=== PATIENT | female | born 1985 | race Caucasian/White ===

== ENCOUNTER 2020-01-27 16:00 | Emergency (ER) | payer OTHER, MEDICAID, SELFPAY ==
[2020-01-27 16:09] VITALS: BP 123/71; PULSE 104; RESP 20; TEMP 36.9; O2SAT 95
--- NOTE | 2020-01-27 16:12 | ED.NAVMDI ---
HPI - Nausea/Vomiting/Diarrhea General Chief complaint: Nausea/Vomiting/Diarrhea Stated complaint: dehydration Time Seen by Provider: 01/27/20 16:04 Source: patient Mode of arrival: Ambulatory Limitations: no limitations History of Present Illness HPI Narrative: Patient is a 34-year-old female here for evaluation of diarrhea. She also states she is having cramping abdominal pain associated with this. Did have nausea and vomiting on the 1st day of the symptoms but that has since stopped. She is still tolerating oral intake. No recent travel. No recent antibiotic use. No sick contacts. No camping. Patient went to her clinic and was told to come to the emergency department because her heart rate was elevated. No fevers. Has not tried anything to stop the diarrhea Related Data Home Medications Medication Instructions Recorded Confirmed levonorgestrel-ethinyl estrad See Rx Instructions .ROUTE .COMPLEX 01/27/20 01/27/20 topiramate [Topamax] 25 mg PO DAILY 01/27/20 01/27/20 Allergies Allergy/AdvReac Type Severity Reaction Status Date / Time amoxicillin AdvReac Intermediate Abdominal Verified 01/27/20 16:36 Pain Review of Systems Constitutional Constitutional: Denies fever(s) Cardiovascular Cardiovascular: Denies chest pain and Denies dyspnea Respiratory Respiratory: Denies dyspnea Gastrointestinal Gastrointestinal: Reports cramping, Reports diarrhea, Denies nausea and Denies vomiting Genitourinary Genitourinary: Denies dysuria Musculoskeletal Musculoskeletal: Denies myalgias and Denies arthralgias Integumentary/Breasts Skin/Breast: Denies lesions and Denies rash Hematologic/Lymphatic Hematologic/Lymphatic: Denies easy bleeding and Denies easy bruising Patient History Medical History Healthy adult (Acute) Social History Smoking Status: Never smoker Smoking Status: Never smoker Exam Initial Vital Signs Initial Vital Signs: Vital Signs Temperature 98.4 F 01/27/20 16:09 Pulse Rate 104 H 01/27/20 16:09 Respiratory Rate 20 01/27/20 16:09 Blood Pressure 123/71 01/27/20 16:09 Pulse Oximetry 95 01/27/20 16:09 Const General: cooperative, comfortable, well developed and well groomed Limitations: mental status not altered HENME Head: normal to inspection and normocephalic Resp Effort & Inspection: normal respiratory effort Auscultation: clear to auscultation bilaterally Cardio Rate: tachycardic Rhythm: regular rhythm Pulses: radial pulses present GI Inspection: non-distended Palpation: soft, No firm and No tender Skin Lesions: no lesions Rashes: no rashes Neuro General: alert and awake Cognition: normal cognition Speech: speech normal Extrem General: normal to inspection and capillary refill normal Psych Appearance: grossly normal and well kempt Course Orders Ordered: Discontinued Medications Sodium Chloride (Normal Saline 0.9%) 1,000 mls @ 1,000 mls/hr IV BOLUS ONE Stop: 01/27/20 17:10 Last Admin: 01/27/20 16:39 Dose: 1,000 mls/hr Documented by: ALEXANDER Vital Signs Vital signs: Vital Signs - 8 hr 01/27/20 16:09 Temperature 98.4 F Pulse Rate 104 H Respiratory Rate 20 Blood Pressure 123/71 Pulse Oximetry 95 MDM - Nausea/Vomiting/Diarrhea MDM Narrative Medical decision making narrative: Patient has a very benign exam. No indication for radiologic studies. No indication for antibiotics. Patient stated that she would like to have IV fluids which were administered. I feel that we could hold on further workup. We did discuss use of anti diarrheal medications. Patient was given return precautions and follow-up instructions. She expressed understanding and agreement Discharge Plan Departure Patient Disposition: Home Clinical Impression: Diarrhea Qualifiers: Diarrhea type: unspecified type Qualified Code(s): R19.7 - Diarrhea, unspecified Instructions: Diarrhea Activity Restrictions/Additional Instructions: I do recommend that you increase your fluid intake. Use the anti diarrheal medications like we discussed if you feel like you need to use them. Return to the emergency department for any new or worsening symptoms Prescriptions: No Action topiramate [Topamax] 25 mg Tablet 25 mg PO DAILY RF: 0 levonorgestrel-ethinyl estrad 0.15 mg-30 mcg (91) Tablets,Dose Pack,3 Month See Rx Instructions .ROUTE .COMPLEX RF: 0
[2020-01-27] MEDS: SODIUM CHLORIDE 0.9% 1,000 ML 1000 ML IV (16:39)
[2020-01-27 18:18] VITALS: BP 113/70; PULSE 95; RESP 17; O2SAT 99
== END 2020-01-27 18:39 | disposition home or self-care (01) ==
PROVIDERS: Emergency Provider Emergency Medicine
DX: R19.7 Diarrhea, unspecified (principal); R10.9 Unspecified abdominal pain
CPT/HCPCS: 96360; 96361; 99284

== ENCOUNTER → 2022-09-25 11:53 | Outpatient (CLI) | payer OTHER, MEDICAID, SELFPAY ==
--- NOTE | 2022-09-25 11:57 | DI.RAD.S_ITS ---
PROCEDURE: XR CHEST 2V INDICATIONS: COUGH TECHNIQUE: 2 views of the chest were acquired. COMPARISON: None. FINDINGS: Surgical changes and devices: None. Lungs and pleura: Lungs are clear. No pleural effusions or pneumothorax. Mediastinum: Mediastinal contours are normal. Heart size is normal. Bones and chest wall: No suspicious bony abnormalities. Soft tissues appear unremarkable. IMPRESSION: No acute cardiopulmonary disease process. Dictated by: Diana Lopez MD, PhD on 09/25/2022 at 14:14 Approved by: Diana Lopez MD, PhD on 09/25/2022 at 14:14
== END ==
PROVIDERS: PCP Internal Medicine; Referring Provider Registered Nurse; Visit Provider Registered Nurse
DX: R05.9 Cough, unspecified (principal)
CPT/HCPCS: 71046

== ENCOUNTER 2022-09-27 17:55 | Emergency (ER) | payer OTHER, MEDICAID, SELFPAY ==
[2022-09-27 18:00] VITALS: BP 148/108; PULSE 100; RESP 15; TEMP 36.7; O2SAT 96; BMI 49.4
--- NOTE | 2022-09-27 18:02 | ED.EAR ---
HPI - Ear Problem General Stated complaint: Ear inf Time Seen by Provider: 09/27/22 17:57 Source: patient Mode of arrival: Ambulatory Limitations: no limitations Related Data Home Medications Medication Instructions Recorded Confirmed levonorgestrel 0.15 mg-ethinyl See Rx Instructions .Route .COMPLEX 01/27/20 01/27/20 estradiol 30 mcg tablets,3 mos pack(91) topiramate 25 mg tablet (Topamax) 25 mg PO DAILY 01/27/20 01/27/20 Allergies Allergy/AdvReac Type Severity Reaction Status Date / Time amoxicillin AdvReac Intermediate Abdominal Verified 01/27/20 16:36 Pain Review of Systems Review of Systems ROS Unobtainable: All systems reviewed & are unremarkable except as noted in HPI and below Patient History Medical History Healthy adult Social History Smoking Status: Never smoker Smoking Status: Never smoker Discharge Plan Departure Prescriptions: No Action topiramate [Topamax] 25 mg Tablet 25 mg PO DAILY levonorgestrel-ethinyl estrad 0.15 mg-30 mcg (91) Tablets,Dose Pack,3 Month See Rx Instructions .ROUTE .COMPLEX Rx Instructions: daily Referrals: Светлана Byers ARNP [Primary Care Provider] -
--- NOTE | 2022-09-27 19:20 | PC.NURSE ---
Report received - assumed care of pt at this time
--- NOTE | 2022-09-27 20:05 | ED_ITS ---
HPI - URI/Sore Throat <Yann Mejia PA-C - Last Filed: 09/27/22 20:10> General Chief Complaint: Upper Respiratory Symptoms Stated Complaint: Ear inf Time Seen by Provider: 09/27/22 17:57 Source: patient Mode of arrival: Ambulatory Limitations: no limitations History of Present Illness HPI Narrative: This is a 37-year-old female presents to the emergency department due to continued cough after recent you URI. Patient states that the cough is ?distract him crazy?. Occasionally productive, reports intermittent tactile fevers. Denies any chest pain, shortness of breath, nausea, vomiting, or any other concerning signs or symptoms. Related Data Home Medications Medication Instructions Recorded Confirmed levonorgestrel 0.15 mg-ethinyl See Rx Instructions .Route .COMPLEX 01/27/20 01/27/20 estradiol 30 mcg tablets,3 mos pack(91) topiramate 25 mg tablet (Topamax) 25 mg PO DAILY 01/27/20 01/27/20 Previous Rx's Medication Instructions Recorded benzonatate 100 mg capsule 100 mg PO TID PRN cough #30 caps 09/27/22 pseudoephedrine HCl 30 mg tablet 30 mg PO Q4-6H PRN nasal 09/27/22 (Sudafed) congestion #30 tabs Allergies Allergy/AdvReac Type Severity Reaction Status Date / Time amoxicillin AdvReac Intermediate Abdominal Verified 09/27/22 18:07 Pain Review of Systems <Yann Mejia PA-C - Last Filed: 09/27/22 20:10> Review of Systems Narrative: GENERAL: Denies chills, fatigue, malaise, fever, sweats. HEENT: Denies sinus pain, ear pain, sore throat, difficulty swallowing, dizziness. RESPIRATORY: Reports cough, Denies dyspnea, , wheezing, hemoptysis, sputum. CARDIOVASCULAR: Denies chest pain, palpitations, orthopnea, edema, GASTROINTESTINAL: Denies nausea, vomiting, abdominal pain, diarrhea, constipati on, melena. : Denies dysuria, frequency, incontinence, hematuria, urinary retention. MUSCULOSKELETAL: denies weakness, joint pain, or bony pain SKIN: Denies rash, skin lesions, or other NEUROLOGIC: Denies weakness, headache, numbness, change in speech, confusion, seizures, incoordination. PSYCHIATRIC: No concerning psychosocial issues. 12 point review of systems is negative except for those stated above Patient History <Yann Mejia PA-C - Last Filed: 09/27/22 20:10> Medical History (Updated 09/27/22 @ 20:08 by Yann Mejia PA-C) Healthy adult Social History Smoking Status: Never smoker Smoking Status: Never smoker alcohol intake frequency: holidays/special occasions only Substance Use Type: does not use Exam <Yann Mejia PA-C - Last Filed: 09/27/22 20:10> Narrative Exam Narrative: GENERAL: Well-developed patient, in mild distress. HEAD: Atraumatic. Normocephalic. EYES: Pupils equal round and reactive. Extraocular motions intact. No scleral icterus. No injection or drainage. ENT: Nose without bleeding, purulent drainage. Throat without erythema, tonsillar hypertrophy or exudate. Airway patent. NECK: Trachea midline. Non tender CARDIOVASCULAR: Regular rate and rhythm without murmurs, gallops, or rubs. RESPIRATORY: Clear to auscultation. Breath sounds equal bilaterally. No wheezes, rales, or rhonchi. GASTROINTESTINAL: Abdomen soft, non-tender, nondistended. EXTREMITIES: No edema or joint tenderness. BACK: Nontender without deformity or crepitance. No flank tenderness. NEURO: AOx3. SKIN: No rash or erythema of visible areas Initial Vital Signs Initial Vital Signs: Vital Signs Temperature 98.1 F 09/27/22 18:00 Pulse Rate 100 H 09/27/22 18:00 Respiratory Rate 15 09/27/22 18:00 Blood Pressure 148/108 H 09/27/22 18:00 Pulse Oximetry 96 09/27/22 18:00 Oxygen Delivery Method 09/27/22 18:00 <Xiomara Elkins DO - Last Filed: 09/28/22 03:59> Initial Vital Signs Initial Vital Signs: Vital Signs Temperature 98.1 F 09/27/22 18:00 Pulse Rate 100 H 09/27/22 18:00 Respiratory Rate 15 09/27/22 18:00 Blood Pressure 148/108 H 09/27/22 18:00 Pulse Oximetry 96 09/27/22 18:00 Oxygen Delivery Method 09/27/22 18:00 Course <Yann Mejia PA-C - Last Filed: 09/27/22 20:10> Orders Ordered: ED Orders 09/27/22 18:08 Respiratory Panel (Film Array) Stat Vital Signs Vital signs: Vital Signs - 8 hr 09/27/22 20:21 Pulse Rate 94 H Respiratory Rate 16 Blood Pressure 135/91 H Pulse Oximetry 97 Oxygen Delivery Method Room Air <Xiomara Thomas BarakatnubiaDO - Last Filed: 09/28/22 03:59> Orders Ordered: ED Orders 09/27/22 18:08 Respiratory Panel (Film Array) Stat Vital Signs Vital signs: Vital Signs - 8 hr 09/27/22 20:21 Pulse Rate 94 H Respiratory Rate 16 Blood Pressure 135/91 H Pulse Oximetry 97 Oxygen Delivery Method Room Air MDM - URI/Sore Throat <Yann Mejia PA-C - Last Filed: 09/27/22 20:10> Lab Data Labs: Lab Results 09/27/22 Range/Units 18:08 Chlamy pneumoniae PCR Not detected (Not Detect) Adenovirus (PCR) Not detected (Not Detect) B. pertussis DNA (PCR) Not detected (Not Detecte) B.parapertussis DNA PCR Not detected (Not Detecte) Coronavirus OC43 (PCR) Not detected (Not Detect) Coronavirus HKU1 (PCR) Not detected (Not Detect) Coronavirus 229E (PCR) Not detected (Not Detect) SARS-CoV-2 (PCR) Not detected (Not Detecte) Coronavirus NL63 (PCR) Not detected (Not Detect) Human Metapneumovir PCR Not detected (Not Detect) Influenza Type A (PCR) Not detected (Not Detect) Influenza Type B (PCR) Not detected (Not Detect) M. pneumoniae (PCR) Not detected (Not Detect) Parainfluenza 1 (PCR) Not detected (Not Detect) Parainfluenza 2 (PCR) Not detected (Not Detect) Parainfluenza 3 (PCR) Not detected (Not Detect) Parainfluenza 4 (PCR) Not detected (Not Detect) RSV (PCR) Not detected (Not Detect) Entero/Rhino (PCR) Not detected (Not Detect) MDM Narrative Medical decision making narrative: This is a 37-year-old female presents to the emergency department due to suspected viral URI with continued cough. Patient is mainly concerned with the continued coughing. Patient has had a recent COVID and flu test which was negative. Also had a chest x-ray which showed no evidence of pneumonia at outs [facility]. Patient will prescribe Tessalon Perllilliana, Sudafed, and recommendations for symptomatic treatment and follow up with primary care provider. Vitals and physical exam non concerning. <Xiomara Elkins, DO - Last Filed: 09/28/22 03:59> Lab Data Labs: Lab Results 09/27/22 Range/Units 18:08 Chlamy pneumoniae PCR Not detected (Not Detect) Adenovirus (PCR) Not detected (Not Detect) B. pertussis DNA (PCR) Not detected (Not Detecte) B.parapertussis DNA PCR Not detected (Not Detecte) Coronavirus OC43 (PCR) Not detected (Not Detect) Coronavirus HKU1 (PCR) Not detected (Not Detect) Coronavirus 229E (PCR) Not detected (Not Detect) SARS-CoV-2 (PCR) Not detected (Not Detecte) Coronavirus NL63 (PCR) Not detected (Not Detect) Human Metapneumovir PCR Not detected (Not Detect) Influenza Type A (PCR) Not detected (Not Detect) Influenza Type B (PCR) Not detected (Not Detect) M. pneumoniae (PCR) Not detected (Not Detect) Parainfluenza 1 (PCR) Not detected (Not Detect) Parainfluenza 2 (PCR) Not detected (Not Detect) Parainfluenza 3 (PCR) Not detected (Not Detect) Parainfluenza 4 (PCR) Not detected (Not Detect) RSV (PCR) Not detected (Not Detect) Entero/Rhino (PCR) Not detected (Not Detect) Discharge Plan Departure Patient Disposition: Home Clinical Impression: Upper respiratory infection Instructions: DI for Acute Bronchitis Activity Restrictions/Additional Instructions: Thank you for coming to the [facility] Emergency Department today. I suspect the continued cough you are having is viral in nature and should improve over time. Please continue to get plenty of rest and drink plenty of fluids. The medications prescribed should help with the symptoms. I hope you feel better soon. Prescriptions: New benzonatate 100 mg capsule 100 mg PO TID PRN (Reason: cough) Qty: 30 0RF pseudoephedrine HCl [Sudafed] 30 mg tablet 30 mg PO Q4-6H PRN (Reason: nasal congestion) Qty: 30 0RF Rx Instructions: DNExceed 4 doses/24h No Action topiramate [Topamax] 25 mg Tablet 25 mg PO DAILY levonorgestrel-ethinyl estrad 0.15 mg-30 mcg (91) Tablets,Dose Pack,3 Month See Rx Instructions .ROUTE .COMPLEX Rx Instructions: daily Referrals: Светлана Byers ARNP [Primary Care Provider] - Visit Report Forms: Patient Portal/API <Xiomara Elkins DO - Last Filed: 09/28/22 03:59> Cosign ED Attending Hemaature Attestation: I was immediately available in the department for consultation. Documentation has been reviewed.
[2022-09-27 20:12] LABS: Adenovirus Not Detected (Not Detect); B. parapertussis Not Detected (Not Detecte); Bordetella pertussis Not Detected (Not Detecte); Chlamydophila pneumoniae Not Detected (Not Detect); Coronavirus 229E Not Detected (Not Detect); Coronavirus HKU1 Not Detected (Not Detect); Coronavirus NL 63 Not Detected (Not Detect); Coronavirus OC43 Not Detected (Not Detect); Human Metapneumovirus Not Detected (Not Detect); Human Rhinovirus/Enterovirus Not Detected (Not Detect); Influenza A Not Detected (Not Detect); Influenza B Not Detected (Not Detect); Mycoplasma pneumoniae Not Detected (Not Detect); Parainfluenza Virus 1 Not Detected (Not Detect); Parainfluenza Virus 2 Not Detected (Not Detect); Parainfluenza Virus 3 Not Detected (Not Detect); Parainfluenza Virus 4 Not Detected (Not Detect); Respiratory Syncytial Virus Not Detected (Not Detect); SARS- CoV-2 Not Detected (Not Detecte)
[2022-09-27 20:21] VITALS: BP 135/91; PULSE 94; RESP 16; O2SAT 97
== END 2022-09-27 20:23 | disposition home or self-care (01) ==
PROVIDERS: Emergency Provider Physician Assistant Medical; PCP Internal Medicine
DX: J06.9 Acute upper respiratory infection, unspecified (principal); Z20.822 Contact with and (suspected) exposure to COVID-19
CPT/HCPCS: 87633; 99281; 99282

== ENCOUNTER → 2022-10-09 11:48 | Outpatient (CLI) | payer OTHER, MEDICAID, SELFPAY ==
--- NOTE | 2022-10-09 | DI.RAD.S_ITS ---
PROCEDURE: XR CHEST 2V INDICATIONS: SUBACUTE COUGH TECHNIQUE: 2 views of the chest were acquired. COMPARISON: [facility], CR, XR CHEST 2V, 09/25/2022, 12:17. FINDINGS: Surgical changes and devices: None. Lungs and pleura: Lungs are clear. No pleural effusions or pneumothorax. Mediastinum: Mediastinal contours are normal. Heart size is normal. Bones and chest wall: No suspicious bony abnormalities. Soft tissues appear unremarkable. IMPRESSION: No acute cardiopulmonary process demonstrated radiographically. Dictated by: Yaw Goss M.D. on 10/09/2022 at 13:10 Approved by: Yaw Gsos M.D. on 10/09/2022 at 13:11
== END ==
PROVIDERS: PCP Internal Medicine; Referring Provider Internal Medicine; Visit Provider Registered Nurse
DX: R05.2 Subacute cough (principal); Z20.822 Contact with and (suspected) exposure to COVID-19
CPT/HCPCS: 0241U; 71046

== ENCOUNTER → 2022-10-09 13:20 | Outpatient (ROUT) | payer OTHER, MEDICAID, SELFPAY ==
[2022-10-09 14:09] LABS: Influenza A - CEPHEID Flu A POSITIVE (NEGATIVE); Influenza B - CEPHEID Flu B NEGATIVE (NEGATIVE); Respiratory Syncytial Virus Negative (Negative)
[2022-10-09 14:55] LABS: COVID-19 CEPHEID 4-PLEX PCR Negative (Negative)
== END ==
PROVIDERS: PCP Internal Medicine; Visit Provider Internal Medicine
DX: Z20.822 Contact with and (suspected) exposure to COVID-19 (principal)
CPT/HCPCS: 0241U

== ENCOUNTER 2022-10-10 23:17 | Emergency (ER) | payer OTHER, MEDICAID, SELFPAY ==
[2022-10-10 23:24] VITALS: BMI 48.4
--- NOTE | 2022-10-10 23:36 | PC.NURSE ---
as i was about to take pt vitals, she said what will you give me, i said i'll start with an xray check the ribs and look for pneumonia, she said she had xray with the [facility] yesterday. pt said she just wants to quit coughing, i explained maybe melina tejada she said she's tried those, i said well lets have the dr visit with you and come up with a plan. pt said she was just going to go home. i explained with her side pain to splint with a pillow when coughing or sneezing. i said you can wait and choose to leave later if the wait is too long. she said she wanted to leave. i told her s/o that we are here all night, if they want to come back.
== END 2022-10-10 23:59 | disposition left against medical advice (07) ==
PROVIDERS: Emergency Provider Emergency Medicine; PCP Internal Medicine
DX: R05.9 Cough, unspecified (principal)
CPT/HCPCS: 99281

== ENCOUNTER → 2023-01-10 10:11 | Outpatient (CLI) | payer OTHER, MEDICAID, SELFPAY ==
--- NOTE | 2023-01-10 | DI.CT.S_ITS ---
PROCEDURE: CT ABDOMEN PELVIS W CON INDICATIONS: ABDOMINAL PAIN/RULE OUT DIVERTICULITIS TECHNIQUE: After the administration of oral and IV contrast, axial sections were acquired from the lung bases to the pubic symphysis. Coronal and sagittal reformats were performed. For radiation dose reduction, the following was used: automated exposure control, adjustment of mA and/or kV according to patient size. COMPARISON: None. FINDINGS: Image quality: Excellent. Lung bases: Unremarkable. Heart: No significant findings. ABDOMEN: Liver: An enlarged, fatty liver can be seen. Focal fatty sparing can be seen involving the posterior left liver. Gallbladder: Unremarkable. Biliary ducts: Unremarkable. Pancreas: Unremarkable. Spleen: Unremarkable. Incidental note is made of an accessory splenule along the hilum of the primary spleen. Adrenal Glands: Unremarkable. Kidneys and Ureters: There is a nonobstructing left-sided kidney stone seen, as on series 2, image 37 measuring 7 mm and 500 Hounsfield units. Tiny nonobstructing stones are seen elsewhere. No hydronephrosis is seen on either side. The kidneys demonstrate normal size and enhance symmetrically. Stomach and Bowel: In this patient with this given history, scrutiny is given to sigmoid colon and the left lower quadrant. Mild diverticular formation can be seen, yet without findings of active diverticulitis. No focal left lower quadrant inflammatory change can be seen. The remainder of the colon is unremarkable. A normal appendix is incidentally noted. No dilated loops of small bowel are seen. No significant gastric abnormality can be seen Peritoneum: No abnormal intraperitoneal fluid. No free air. Ventral Wall: No hernia. Abdominal Nodes: No retroperitoneal or mesenteric adenopathy by size criteria. Vessels: Aorta and inferior vena cava are normal in size. PELVIS: Pelvic Organs: The uterus appears normal for age. No adnexal masses are seen. Bladder: Unremarkable. Pelvic Nodes: No enlarged lymph nodes. Miscellaneous: No inguinal hernias are seen. Bones: Unremarkable. IMPRESSION: Mild sigmoid diverticulosis, without findings of active diverticulitis. Additional findings: Enlarged, fatty liver, with fatty liver sparing Accessory splenule Bilateral nonobstructing renal stones Normal appendix Dictated by: Sivakumar Lackey M.D. on 01/10/2023 at 12:37 Approved by: Sivakumar Lackey M.D. on 01/10/2023 at 12:40
== END ==
PROVIDERS: PCP Internal Medicine; Referring Provider Internal Medicine; Visit Provider Internal Medicine
DX: K57.30 Diverticulosis of large intestine without perforation or abscess without bleeding (principal); K76.0 Fatty (change of) liver, not elsewhere classified; N20.0 Calculus of kidney; R10.32 Left lower quadrant pain; Z80.41 Family history of malignant neoplasm of ovary
CPT/HCPCS: 74177; Q9967

== ENCOUNTER → 2023-04-01 10:25 | Outpatient (CLI) | payer OTHER, MEDICAID, SELFPAY ==
--- NOTE | 2023-04-01 10:29 | DI.US.S_ITS ---
PROCEDURE: US SOFT TISSUE HEAD AND NECK INDICATIONS: PALPABLE RIGHT LUMP TECHNIQUE: Real-time scanning was performed of the neck region of interest, with image documentation. COMPARISON: None. FINDINGS: No sonographic bilateral neck abnormality. IMPRESSION: No sonographic abnormality of the neck. Dictated by: Josh Solis M.D. on 04/01/2023 at 12:47 Approved by: Josh Solis M.D. on 04/01/2023 at 12:48
== END ==
PROVIDERS: PCP Internal Medicine; Referring Provider Registered Nurse; Visit Provider Registered Nurse
DX: R22.1 Localized swelling, mass and lump, neck (principal)
CPT/HCPCS: 76536

== ENCOUNTER → 2024-10-12 11:53 | Outpatient (CLI) | payer OTHER, MEDICAID, SELFPAY ==
--- NOTE | 2024-10-12 11:55 | DI.RAD.S_ITS ---
PROCEDURE: XR CHEST 2V INDICATIONS: ACUTE COUGH TECHNIQUE: 2 views of the chest were acquired. COMPARISON: [facility], CR, XR CHEST 2V, 10/09/2022, 11:50. [facility], CR, XR CHEST 2V, 09/25/2022, 12:17. FINDINGS: Surgical changes and devices: None. Lungs and pleura: Retrocardiac opacity. No pleural effusions or pneumothorax. Mediastinum: Mediastinal contours are normal. Heart size is normal. Bones and chest wall: No suspicious bony abnormalities. Soft tissues appear unremarkable. IMPRESSION: Retrocardiac opacity suspicious for pneumonia. Dictated by: Alberto Bustos M.D. on 10/12/2024 at 18:58 Approved by: Alberto Bustos M.D. on 10/12/2024 at 18:58
[2024-10-12 12:55] LABS: Influenza A - CEPHEID Flu A NEGATIVE (NEGATIVE); Influenza B - CEPHEID Flu B NEGATIVE (NEGATIVE); Respiratory Syncytial Virus Negative (Negative)
[2024-10-12 12:56] LABS: COVID-19 CEPHEID 4-PLEX PCR Negative (Negative)
== END ==
PROVIDERS: PCP Registered Nurse; Referring Provider Internal Medicine; Visit Provider Internal Medicine
DX: R50.9 Fever, unspecified; R06.02 Shortness of breath; R05.1 Acute cough
CPT/HCPCS: 0241U; 71046

== ENCOUNTER → 2024-11-02 15:12 | Outpatient (CLI) | payer OTHER, MEDICAID, SELFPAY ==
--- NOTE | 2024-11-02 15:14 | DI.RAD.S_ITS ---
PROCEDURE: XR CHEST 2V INDICATIONS: Pneumonia, unspecified organism TECHNIQUE: 2 views of the chest were acquired. COMPARISON: [facility], CR, XR CHEST 2V, 10/12/2024, 11:56. FINDINGS: Surgical changes and devices: None. Lungs and pleura: Resolution of focal pneumonia, right lower lobe. No pleural effusions or pneumothorax. Mediastinum: Mediastinal contours are normal. Heart size is normal. Bones and chest wall: No suspicious bony abnormalities. Soft tissues appear unremarkable. IMPRESSION: Resolution of previous pneumonia. Dictated by: Evan Weir M.D. on 11/02/2024 at 20:44 Approved by: Evan Weir M.D. on 11/02/2024 at 20:45
== END ==
PROVIDERS: PCP Registered Nurse; Referring Provider Internal Medicine; Visit Provider Internal Medicine
DX: J18.9 Pneumonia, unspecified organism (principal); R05.1 Acute cough
CPT/HCPCS: 71046

== ENCOUNTER 2025-03-10 20:37 | Emergency (ER) | payer BC, OTHER, SELFPAY ==
[2025-03-10] VITALS (8 sets, daily range): BP systolic 105–130; BP diastolic 60–70; PULSE 60–82; RESP 16; TEMP 36.9; O2SAT 94–99; BMI 46.6
[2025-03-10 21:06] LABS: Add Manual Diff / Slide Review NO; Basophils Absolute Auto 0 /uL (0-100); Basophils Percent Auto 0.5 % (0-2); Eosinophils Absolute Auto 200 /uL (0-450); Hematocrit 37.5 % (36-46); Hemoglobin 12.3 g/dL (12.0-16.0); Lymphocytes Absolute Auto 2000 /uL (1100-4500); Lymphocytes Percent Auto 21.8 % (25-40); Mean Corpuscular HGB Conc 32.9 % (30-36); Mean Corpuscular Hemoglobin 26.3 PG (26-34); Monocytes Absolute Auto 700 /uL (0-900); Monocytes Percent Auto 8.1 % (3-14); Neutrophils Absolute Auto 6100 /uL (1500-7000); Neutrophils Percent Auto 67.6 % (50-75); Platelet Count 298 X10^3/uL (150-400); Red Blood Cell Count 4.69 X10^6/uL (4.0-5.2); Red Cell Distribution Width 15.4 % (11.6-14.8)
[2025-03-10 21:15] LABS: Alanine Aminotransferase 23 IU/L (<35); Albumin 4.1 g/dL (3.5-5.0); Albumin Globulin Ratio 1.4 (1.0-2.8); Alkaline Phosphatase 65 U/L (38-126); Aspartate Aminotransferase 26 IU/L (14-36); BUN Creatinine Ratio 23.5 (6-22); Bilirubin Total 0.2 mg/dL (0.2-1.3); Blood Urea Nitrogen 16 mg/dL (7-17); Carbon Dioxide 24 mmol/L (22-32); Chloride 108 mmol/L (98-107); Estimated Glomerular Filt Rate > 60 mL/min (>60); Glucose 107 mg/dL (70-100); HEMOLYSIS < 15 (0-50); Lipase 281 U/L (23-300); Potassium 3.9 mmol/L (3.4-5.1); Sodium 140 mmol/L (137-145); Total Protein 7.1 g/dL (6.3-8.2)
--- NOTE | 2025-03-10 21:31 | ED_ITS ---
HPI - Abdominal Pain General Chief Complaint: Abdominal Pain Stated Complaint: rt sided stomach pain Time Seen by Provider: 03/10/25 21:01 Source: patient Mode of arrival: Ambulatory History of Present Illness HPI narrative: Patient is a 39-year-old healthy female presenting to day with right-sided pain. She says it comes and goes in waves feeling nauseous at times. No fever or chills. Denies any kind of back pain. It seems the mostly upper abdomen but sometimes lower. Related Data Home Medications Medication Instructions Recorded Confirmed topiramate 25 mg tablet (Topamax) 25 mg PO DAILY 01/27/20 02/18/24 nifedipine 30 mg tablet,extended 30 mg PO DAILY 02/18/24 02/18/24 release Previous Rx's Medication Instructions Recorded cyclobenzaprine 5 mg tablet 5 mg PO TID PRN muscle spasm #20 10/23/23 tabs levofloxacin 750 mg tablet 750 mg PO DAILY 7 days #7 tabs 03/10/25 Allergies Allergy/AdvReac Type Severity Reaction Status Date / Time amoxicillin AdvReac Intermediate Abdominal Verified 02/18/24 13:24 Pain Patient History Medical History Acne Sleep apnea Headache Chicken pox Kidney stones HPV (human papilloma virus) infection Healthy adult Surgical History Anesthesia History of section History of lithotripsy (~2012) History of knee surgery Family History Father Skin cancer Diabetes mellitus Hypertension Hyperlipidemia Mental health problem Mother Diabetes mellitus COPD (chronic obstructive pulmonary disease) Sister Mental health problem Ovarian cancer Social History Smoking Status: Never smoker Smoking Status: Never smoker alcohol intake frequency: holidays/special occasions only Exam Initial Vital Signs Initial Vital Signs: Vital Signs Temperature 98.5 F 03/10/25 20:40 Pulse Rate 73 03/10/25 20:40 Respiratory Rate 16 03/10/25 20:40 Blood Pressure 128/68 03/10/25 20:40 Pulse Oximetry 98 03/10/25 20:40 Oxygen Delivery Method Room Air 03/10/25 20:40 GENERAL: Alert pleasant 39-year-old female sleeping but easily aroused and in no acute distress. HEENT: Head atraumatic,EOMI, pupils reactive, face symmetric, moist mucous membranes CARDIOVASCULAR: Regular rate and rhythm without murmurs, rubs or gallops. RESPIRATORY: Breath sounds equal bilaterally, no wheezes rales or rhonchi. ABDOMEN: Soft, positive Blandon's sign tender epigastric region EXTREMITIES: Normal range of motion, no clubbing or edema. Neurovascularly intact NEUROLOGICAL: Alert and oriented x4.Normal gait and speech. Cranial nerves II through XII grossly intact. SKIN: Warm, dry, no laceration, no petechiae, no rashes or lesions. Course Orders Ordered: ED Orders 03/10/25 20:55 Complete Blood Count AUTO DIFF Stat Comprehensive Metabolic Panel Stat Lipase Stat 03/10/25 21:50 US abdomen limited Stat Discontinued Medications Ketorolac Tromethamine (Ketorolac 30 Mg/Ml Vial) 15 mg IV NOW ONE Stop: 03/10/25 22:51 Last Admin: 03/10/25 22:55 Dose: 15 mg Documented By: LANI Ondansetron HCl (Ondansetron 4 Mg/2 Ml Inj) 4 mg IV NOW PRN PRN Reason: Nausea And Vomiting Ondansetron HCl (Ondansetron 4 Mg Odt) 4 mg PO NOW PRN PRN Reason: Nausea And Vomiting Vital Signs Vital signs: Vital Signs - 8 hr 03/10/25 20:40 03/10/25 21:39 03/10/25 21:40 Temperature 98.5 F Pulse Rate 73 71 71 Respiratory Rate 16 Blood Pressure 128/68 Pulse Oximetry 98 99 99 Oxygen Delivery Method Room Air 03/10/25 21:40 03/10/25 22:00 03/10/25 22:00 Temperature Pulse Rate 82 Respiratory Rate Blood Pressure 118/62 105/69 Pulse Oximetry 99 Oxygen Delivery Method 03/10/25 22:30 03/10/25 22:31 03/10/25 22:31 Temperature Pulse Rate 62 60 Respiratory Rate Blood Pressure 130/60 Pulse Oximetry 94 99 Oxygen Delivery Method 03/10/25 22:59 03/10/25 23:00 Temperature Pulse Rate Respiratory Rate Blood Pressure 122/70 Pulse Oximetry 98 Oxygen Delivery Method MDM - Abdominal Pain Lab Data 03/10/25 20:55 03/10/25 20:55 Labs: Lab Results 04/16/25 Range/Units 20:55 WBC 9.0 (4.5-11.0) X10^3/uL RBC 4.69 (4.0-5.2) X10^6/uL Hgb 12.3 (12.0-16.0) g/dL Hct 37.5 (36-46) % MCV 80.0 (80-100) fL MCH 26.3 (26-34) PG MCHC 32.9 (30-36) % RDW 15.4 H (11.6-14.8) % Plt Count 298 (150-400) X10^3/uL Neut % (Auto) 67.6 (50-75) % Lymph % (Auto) 21.8 L (25-40) % [place] % (Auto) 8.1 (3-14) % Eos % (Auto) 2.0 (2-4) % Baso % (Auto) 0.5 (0-2) % Neut # (Auto) 6100 (7707-9866) /uL Lymph # (Auto) 2000 (1456-5937) /uL [place] # (Auto) 700 (0-900) /uL Eos # (Auto) 200 (0-450) /uL Baso # (Auto) 0 (0-100) /uL Sodium 140 (137-145) mmol/L Potassium 3.9 (3.4-5.1) mmol/L Chloride 108 H (98-107) mmol/L Carbon Dioxide 24 (22-32) mmol/L BUN 16 (7-17) mg/dL Creatinine 0.68 (0.52-1.04) mg/dL Estimated GFR > 60 (>60) mL/min BUN/Creatinine Ratio 23.5 H (6-22) Glucose 107 H (70-100) mg/dL Calcium 9.0 (8.4-10.2) mg/dL Total Bilirubin 0.2 (0.2-1.3) mg/dL AST 26 (14-36) IU/L ALT 23 (<35) IU/L Alkaline Phosphatase 65 (38-126) U/L Total Protein 7.1 (6.3-8.2) g/dL Albumin 4.1 (3.5-5.0) g/dL Globulin 3.0 (1.7-4.1) g/dL Albumin/Globulin Ratio 1.4 (1.0-2.8) Lipase 281 (23-300) U/L Point of care testing: Point of Care Testing Test Results Negative Urine Dip Bedside Urine Glucose Negative Bedside Urine Bilirubin - Negative Bedside Urine Ketone - Negative Urine Specific [address] 1.010 Bedside Urine Occult Blood - Negative Bedside Urine pH 8 Bedside Urine Protein - Negative Bedside Urine Urobilinogen - Negative Bedside Urine Nitrite - Negative Bedside Urine Leukocytes - Negative Esterase Imaging Data US - abdomen: Radiologist's Impression: PROCEDURE: US ABDOMEN LIMITED INDICATIONS: ruq TECHNIQUE: Real-time scanning was performed of the abdominal and retroperitoneal organs, with image documentation. COMPARISON: [facility], CT, CT ABDOMEN PELVIS W CON, 01/10/2023, 11:19. FINDINGS: Liver: Liver is upper limits of normal in size and diffusely increased in echogenicity. Gallbladder: Gallstones are present. Gallbladder appears mildly contracted with borderline gallbladder wall thickening. No pericholecystic fluid. Sonographic Blandon's sign reportedly positive. Biliary ducts: Intrahepatic bile ducts are non-dilated. Extrahepatic bile duct caliber measures 4.5 mm. Normal is 6-7 mm or less in diameter, or 10 mm or less post-cholecystectomy. Pancreas: Visualized portions of the pancreas are sonographically normal. Miscellaneous: No free abdominal fluid. IMPRESSION: 1. Contracted gallbladder with cholelithiasis. Sonographic Blandon sign is positive. Findings are equivocal for acute cholecystitis and correlation with clinical and laboratory findings is recommended. 2. Diffusely increased hepatic echogenicity is nonspecific, but most commonly encountered in the setting of hepatic steatosis. However, other causes of hepatocellular disease are not excluded. Recommend clinical correlation. Approved by: Orlando Barboza M.D. on 03/10/2025 at 22:39 MDM Narrative Medical decision making narrative: Patient is a healthy 39-year-old female presenting today with right-sided abdominal pain coming and going for couple of days currently not having pain is tender in right upper quadrant Differential diagnosis cholecystitis cholelithiasis nephrolithiasis appendicitis Blood work has been reviewed he has no leukocytosis, there enzymes bilirubin and lipase are within normal limits, electrolytes within normal limits Ultrasound reviewed does show cholelithiasis no pericholecystic fluid borderline gallbladder wall thickening. Patient has new leukocytosis sleeping frequently in the emergency department liver enzymes and bilirubin within normal limits. At this time okay for follow up outpatient. However based on borderline thickening gallbladder we will start her on antibiotics. Not really requiring anything further than Toradol for pain here in the ED. Discharge Plan Departure Patient Disposition: Home Clinical Impression: Cholelithiasis Instructions: Gallstones Activity Restrictions/Additional Instructions: *You have been diagnosed with gallstone *What to do: At this time you will need your gallbladder removed however not emergently today. Follow gallbladder diet (you can Google this) it may help your pain and symptoms *Continue to take medications as directed Motrin 600 mg every 6 hours for [id number]-uk-jwccweqy pain Levaquin 750 mg once a day for 7 days *Follow up with your primary care provider in 2-3 days or call [phone] Call [place] [facility] to schedule follow up appointment *Return to ER if you should have increasing pain fever persistent vomiting or any new, worsening or concerning symptoms Prescriptions: New levofloxacin 750 mg tablet 750 mg PO DAILY 7 Days Qty: 7 0RF No Action cyclobenzaprine 5 mg tablet 5 mg PO TID PRN (Reason: muscle spasm) Qty: 20 0RF nifedipine 30 mg tablet extended release 30 mg PO DAILY topiramate [Topamax] 25 mg Tablet 25 mg PO DAILY Referrals: [facility] [Provider Group] Thalia Vasquez ARNP [Primary Care Provider] - Stand Alone Forms: Patient Portal/API/Survey
--- NOTE | 2025-03-10 21:50 | DI.US.S_ITS ---
PROCEDURE: US ABDOMEN LIMITED INDICATIONS: ruq TECHNIQUE: Real-time scanning was performed of the abdominal and retroperitoneal organs, with image documentation. COMPARISON: [facility], CT, CT ABDOMEN PELVIS W CON, 01/10/2023, 11:19. FINDINGS: Liver: Liver is upper limits of normal in size and diffusely increased in echogenicity. Gallbladder: Gallstones are present. Gallbladder appears mildly contracted with borderline gallbladder wall thickening. No pericholecystic fluid. Sonographic Blandon's sign reportedly positive. Biliary ducts: Intrahepatic bile ducts are non-dilated. Extrahepatic bile duct caliber measures 4.5 mm. Normal is 6-7 mm or less in diameter, or 10 mm or less post-cholecystectomy. Pancreas: Visualized portions of the pancreas are sonographically normal. Miscellaneous: No free abdominal fluid. IMPRESSION: 1. Contracted gallbladder with cholelithiasis. Sonographic Blandon sign is positive. Findings are equivocal for acute cholecystitis and correlation with clinical and laboratory findings is recommended. 2. Diffusely increased hepatic echogenicity is nonspecific, but most commonly encountered in the setting of hepatic steatosis. However, other causes of hepatocellular disease are not excluded. Recommend clinical correlation. Approved by: Orlando Barboza M.D. on 03/10/2025 at 22:39
[2025-03-10] MEDS: KETOROLAC 30 MG/ML VIAL 15 MG IV (22:55)
== END 2025-03-10 23:15 | disposition home or self-care (01) ==
PROVIDERS: Emergency Provider Emergency Medicine; PCP Registered Nurse
DX: K80.20 Calculus of gallbladder without cholecystitis without obstruction (principal); R11.0 Nausea
CPT/HCPCS: 36415; 76705; 80053; 81003; 81025; 83690; 85025; 96374; 99284; J1885

== ENCOUNTER 2025-04-07 08:23 | Day surgery (SDC) | payer BC, OTHER, SELFPAY ==
[2025-03-31 13:29] VITALS: BMI 46.3
[2025-04-07] VITALS (11 sets, daily range): BP systolic 107–127; BP diastolic 64–81; PULSE 50–83; RESP 14–23; TEMP 36.2–36.8; O2SAT 91–100; BMI 46.3
--- NOTE | 2025-04-07 | PATH_ITS ---
[facility] Accession Number: [id number] No. of containers..01 Tissue . 01 Material submitted: . gallbladder - GALLBLADDER . 01 Diagnosis: GALLBLADDER, CHOLECYSTECTOMY: Mild chronic cholecystitis with cholelithiasis. [facility] [place] 04/12/2025 0912 Local . 01 Electronically signed: . Alicja Egan DO, Pathologist NPI- [id number] . 01 Gross description: . Received in formalin with two identifiers and gallbladder, is an intact gallbladder, 7.0 x 2.9 x 2.7 cm with an unremarkable external surface. The cystic duct margin is inked blue, and no pericystic lymph node is identified. The lumen contains multiple yellow bosselated calculi up to 1.5 cm in greatest dimension, not grossly obstructing the cystic duct and admixed with green mucoid bile. The mucosa is green and velvety with yellow areas of discoloration and no polyps or lesions identified. The granados average 0.2 cm thick. Call Centre Supervisor sections to include the cystic duct margin and full-thickness sections are submitted in A1. ([id number]) /MRV 04/08/2025 1841 Local . 01 Pathologist provided ICD-10: K80.20 . 01 CPT . 76353 Specimen Comment: A courtesy copy of this report has been sent to [phone] Performed at: [address] [id number] MD Fredi Rojas MD Phone: [phone]
[2025-04-07] MEDS: LACTATED RINGERS 1,000 ML 42 ML IV ×2 (09:33→12:20)
--- NOTE | 2025-04-07 10:22 | P.HP_ITS ---
History of Present Illness History of Present Illness Date Patient Seen: 04/07/25 Time Patient Seen: 10:22 Chief complaint: Lap Erma Narrative: Rema is a 39-year-old woman with symptomatic cholelithiasis. See the prior office note for details. [facility] Medical History Acne Sleep apnea Headache Chicken pox Kidney stones HPV (human papilloma virus) infection Healthy adult Surgical History Anesthesia History of section History of lithotripsy (~2012) History of knee surgery Family History Father Skin cancer Diabetes mellitus Hypertension Hyperlipidemia Mental health problem Mother Diabetes mellitus COPD (chronic obstructive pulmonary disease) Sister Mental health problem Ovarian cancer Social History household members: spouse Smoking Status: Never smoker alcohol intake: current Meds Home Medications and Allergies Home Medications Medication Instructions Recorded Confirmed Type topiramate 25 mg tablet (Topamax) 25 mg PO DAILY 01/27/20 04/07/25 History albuterol sulfate 90 mcg/actuation 2 puff inhalation Q4H wheezing 04/07/25 04/07/25 History aerosol inhaler nifedipine 30 mg tablet,extended 30 mg PO DAILY blood pressure 04/07/25 04/07/25 History release Allergies Allergy/AdvReac Type Severity Reaction Status Date / Time amoxicillin AdvReac Intermediate Abdominal Verified 04/07/25 09:35 Pain Exam Vital Signs (past 8 hours): - 04/07/25 09:17 Temperature 98.3 F Pulse Rate 78 Respiratory Rate 14 Blood Pressure 127/81 Pulse Oximetry 100 Oxygen Delivery Method Room Air Oxygen Delivery Method Room Air Const General: No acute distress Assessment & Plan Assessment and plan (1) Symptomatic cholelithiasis: Status: Acute Plan We discussed the plan for performing a robotic cholecystectomy and she would like to proceed. Time-Based Coding :: [TOTAL MINUTES] spent with patient and on the chart (including review of chart, obtaining history, exam, reviewing outside data, placing orders, documenting exam and treatment plan, and counseling patient) on [DATE]. 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
[2025-04-07] MEDS: INDOCYANINE GREEN 25 MG VIAL IV (10:53)
--- NOTE | 2025-04-07 11:02 | SUR.PREOP ---
Verified verbal order from Dr Herr by charisma Rn and Darline Johnson for Indocyanine green IV and DC Topical order
[2025-04-07] MEDS: CIPROFLOXACIN 400 MG/200 ML PIGGYBACK 200 MG IV (11:30)
--- NOTE | 2025-04-07 12:08 | SUR.OPER ---
Supine on padded OR bed, head on pillow, arms padded and tucked at sides, legs uncrossed, safety belt at thigh, tape over blanket over lower legs, footboard on feet at 90 degrees, shoulder strap on .
[2025-04-07] MEDS: BUPIVACAINE 0.5% (PF) 30 ML VIAL INJ (12:19)
--- NOTE | 2025-04-07 13:10 | PM.OP.1 ---
Operative Date/Time/Diagnoses Date of procedure: 04/07/25 Time of procedure: 13:10 Pre-op diagnosis: Symptomatic cholelithiasis Post-op diagnosis: same Procedure & Clinicians Procedure: Robotic cholecystectomy Same procedure as scheduled: Yes Surgeon: Henok Herr Ortho/Prosthetic Aide: Salvador Back Anesthesia Type: General Operative Notes Findings: Not applicable Estimated Blood Loss (mL): 10 Procedure in detail: The patient was given preoperative antibiotics. The patient was brought to the operating room and placed on the table in the supine position. General endotracheal anesthesia was induced. The abdomen was prepped and draped. A time-out was performed. We made a 1 cm infraumbilical incision. We dissected down to the base of the umbilical stalk using cautery. We grasped the umbilical stalk with a Shamika clamp to elevate the abdominal wall. We scored the fascia in the midline with cautery. We pierced the peritoneum with a Peon clamp. The 12 mm port was placed and the abdomen was insufflated to 15 mmHg. A 5 mm 30 degree laparoscopic was inserted. There was no evidence of any injury from the entry. Next, we placed two 8 mm ports in the right lower quadrant and 1 8 mm port in the left upper quadrant under direct vision. The patient was then positioned in reverse Trendelenburg and the table was tilted to the left. The robot was docked. The gallbladder was grasped at the dome and retracted cephalad. We then dissected the cystic structures with hook cautery. We obtained a critical view and we used the firefly to visualize the cystic duct and hepatic duct. We placed clips on the cystic duct and artery and divided the cystic duct and artery sharply between the clips. The gallbladder was then dissected off the liver and placed in a specimen retrieval bag. We irrigated the right upper quadrant and all the aspirate returned clear. We then removed the 8 mm ports under direct vision we removed the 12 mm port. We then injected some local into the fascia and closed the fascia with 2 interrupted 0 Vicryl sutures. The skin incisions were closed with 4-0 Monocryl and Steri-Strips were applied. Band-Aids were applied over the Steri-Strips. EBL: 10 mL Specimen: Gallbladder and contents Salvador SAVAGE provided assistance with exposure, retraction and closure of incisions. Complications: none Post-operative Condition: stable Disposition: PACU
[2025-04-07] MEDS: HYDROMORPHONE 1 MG INJ IV (13:27)
[2025-04-07] MEDS: hydrOXYzine 50 MG/ML INJ 25 MG IM (13:30)
[2025-04-07] MEDS: ACETAMINOPHEN IV 1,000 MG/100 ML VIAL 400 MG IV (13:57)
[2025-04-07] MEDS: KETOROLAC 30 MG/ML VIAL IV (13:57)
[2025-04-07] MEDS: ONDANSETRON 4 MG/2 ML INJ IV (14:05)
--- NOTE | 2025-04-07 14:26 | SUR.PHASEI ---
Verified verbal order from Cathleen RETORT FIREMAN for IV Tyelnol and Iv Toradol for pain (RETORT FIREMAN isolation washer) Verified verbal order from Ambrose RETORT FIREMAN to change Percocet to oxycodone due to Tylenol dose.
[2025-04-07] MEDS: OXYCODONE IR 5 MG TABLET PO (15:21)
== END 2025-04-07 15:41 | disposition home or self-care (01) ==
PROVIDERS: PCP Registered Nurse; Referring Provider Surgery; Visit Provider Surgery
PROC: 0FT44ZZ Resection of Gallbladder, Percutaneous Endoscopic Approach (ICD-10-PCS; CPT 47562; principal; 2025-04-07 10:30)
DX: K80.10 Calculus of gallbladder with chronic cholecystitis without obstruction (principal)
CPT/HCPCS: 47562; J0131; J0330; J0744; J1100; J1171; J1885; J2250; J2405; J2704; J3010; J3410

== ENCOUNTER → 2025-05-13 10:24 | Outpatient (ROUT) | payer BC, OTHER, SELFPAY ==
[2025-05-13 11:37] LABS: Influenza A - CEPHEID Flu A NEGATIVE (NEGATIVE); Influenza B - CEPHEID Flu B NEGATIVE (NEGATIVE); Respiratory Syncytial Virus Negative (Negative)
[2025-05-13 11:56] LABS: COVID-19 CEPHEID 4-PLEX PCR Negative (Negative)
== END ==
LOC: LAB 10:25
PROVIDERS: PCP Registered Nurse; Visit Provider Registered Nurse
DX: R50.9 Fever, unspecified (principal); R19.7 Diarrhea, unspecified; H66.91 Otitis media, unspecified, right ear
CPT/HCPCS: 0241U